=== PATIENT | male | born 1985 | race African-American/Black ===

== ENCOUNTER 2017-09-16 23:08 | Emergency (ER) | payer SELFPAY ==
[2017-09-16] MEDS: IV NORMAL SALINE 1000ML BAG 1,000 ML IV (23:55)
[2017-09-16 23:59] LABS: ADD MAN DIFF? NO
[2017-09-17] MEDS: ONDANSETRON PF 4 MG/2 ML VIAL. IV
[2017-09-17 00:01] LABS: BASO # 0.1 x10^3/uL (0.0-0.2); BASO % 0 % (0-3); EOS % 0 % (0-3); HEMATOCRIT 43.7 % (39.0-53.0); HEMOGLOBIN 14.6 g/dL (13.0-17.5); LYMPH # 1.6 x10^3/uL (1.0-4.8); LYMPH % 11 % (24-48); MEAN CORPUSCULAR HEMOGLOBIN 32 pg (25-35); MEAN CORPUSCULAR HGB CONC 34 g/dL (31-37); MEAN CORPUSCULAR VOLUME 97 fL (79-100); MONO # 0.8 x10^3/uL (0.0-1.1); MONO % 6 % (0-9); NEUT # 12.3 x10^3uL (1.8-7.7); NEUT % 83 % (31-73); PLATELET COUNT 285 x10^3/uL (140-400); RED BLOOD COUNT 4.52 x10^6/uL (4.30-5.70); RED CELL DISTRIBUTION WIDTH 12.8 % (11.5-14.5); WHITE BLOOD COUNT 14.7 x10^3/uL (4.0-11.0)
[2017-09-17] MEDS: MORPHINE SULFATE 2 MG/ML DISP.SYRIN. IV/SQ ×3 (00:02→01:18)
[2017-09-17] MEDS ORDERED: IV NORMAL SALINE 1000ML BAG 1,000 ML IV (01:00)
[2017-09-17 01:01] LABS: ANION GAP 12 (6-14); BLOOD UREA NITROGEN 10 mg/dL (8-26); BUN/CREATININE RATIO 10 (6-20); CALCIUM 9.1 mg/dL (8.5-10.1); CARBON DIOXIDE 26 mmol/L (21-32); CHLORIDE 104 mmol/L (98-107); GFR 103.5; GLUCOSE 110 mg/dL (70-99); POTASSIUM 3.5 mmol/L (3.5-5.1); SODIUM 142 mmol/L (136-145)
[2017-09-17 01:06] LABS: ALBUMIN 3.8 g/dL (3.4-5.0); ALBUMIN/GLOBULIN RATIO 0.9 (1.0-1.7); ALK PHOS 68 U/L (46-116); ALT (SGPT) 17 U/L (16-63); AST (SGOT) 20 U/L (15-37); TOTAL BILIRUBIN 0.3 mg/dL (0.2-1.0); TOTAL PROTEIN 8.1 g/dL (6.4-8.2)
[2017-09-17] MEDS ORDERED: CONTRAST GIVEN MC (01:30)
[2017-09-17] MEDS: fentaNYL PF VIAL 100 MCG/2 ML VIAL IV (01:48)
[2017-09-17] MEDS: IOHEXOL 300 MG/ML 100ML VIAL. IV (01:55)
[2017-09-17 02:39] LABS: BILIRUBIN,URINE NEGATIVE (NEG); CLARITY,URINE CLEAR; COLOR,URINE YELLOW; GLUCOSE,URINE NEGATIVE (NEG); NITRITE,URINE NEGATIVE (NEG); PROTEIN,URINE NEGATIVE (NEG-TRACE); UROBILINOGEN,URINE 0.2 mg/dL (0.2 mg/dL)
[2017-09-17 02:53] LABS: BACTERIA,URINE 0 /HPF (0-FEW); RBC,URINE 0 /HPF (0-2); SQUAMOUS EPITHELIAL CELL,UR OCC /LPF; WBC,URINE OCC /HPF (0-4)
[2017-09-17] MEDS: ORPHENADRINE CITRATE 60 MG/2 ML VIAL. IM (03:04)
== END 2017-09-17 03:11 | disposition home or self-care (01) ==
LOC: ER 09-17 03:11
DX: M54.16 Radiculopathy, lumbar region (principal); M54.42 Lumbago with sciatica, left side; E34.3 Short stature due to endocrine disorder; F17.210 Nicotine dependence, cigarettes, uncomplicated
CPT/HCPCS: 36415; 72131; 74177; 80053; 81001; 85025; 96361; 96372; 96374; 96375; 96376; 99285-25; J2270; J2360; J2405; J3010; J7030; Q9967

== ENCOUNTER 2020-06-30 08:41 | Emergency (ER) | payer SELFPAY ==
[~2020-06-30] VITALS: Ht 147.3 cm; Wt 54.0 kg
[~2020-06-30 08:41] MED LIST: NAPR-683 PO; ORPH100T PO
[2020-06-30 08:50] VITALS: BP 150/100
[2020-06-30] MEDS ORDERED: FAMO-63 PO (09:09)
[2020-06-30] MEDS ORDERED: DIPH25CA58 PO (09:09)
[2020-06-30] MEDS ORDERED: MUPI22OI2 TP (09:09)
[2020-06-30] MEDS ORDERED: PRED20TA PO (09:09)
--- NOTE | 2020-06-30 09:09 | PHYS DOC ---
Past Medical History Additional Past Medical Histor: DWARFISM Past Surgical History: No Surgical History Smoking Status: Current Every Day Smoker Alcohol Use: Occasionally Drug Use: None General Adult EDM: Chief Complaint: SKIN RASH/ABSCESS HPI: HPI: Patient is a 35 year old male presents with report of pruritic rash that started 1 week ago. Patient reports cannot stop itching. Reports started on his chest and has since spread everywhere including his groin. Patient reports noting a "abscess "that opened up above his groin a few days ago. Patient reports he has been using topical hydrocortisone cream as well as petroleum jelly without any improvement. Denies known exposure to allergen. Denies fever or chills. Denies diabetes. Denies known sick contacts. Denies anyone else in his household having similar rash or itching. Review of Systems: Review of Systems: Constitutional: Denies fever or chills Eyes: Denies redness or eye pain HENT: Denies nasal congestion or sore throat Respiratory: Denies cough or shortness of breath Cardiovascular: Denies chest pain or palpitations GI: Denies abdominal pain, nausea, or vomiting : Denies dysuria or hematuria Musculoskeletal: Denies back pain or joint pain Integument: Reports pruritic diffuse rash and pustular lesions to suprapubic area Neurologic: Denies headache, focal weakness or sensory changes Complete systems were reviewed and found to be within normal limits, except as documented in this note. Allergies: Allergies: Allergies Coded Allergies Type Severity Reaction Last Updated Verified No Known Allergies Allergy Unknown 09/16/17 Yes Physical Exam: PE: Constitutional: Well developed, well nourished, no acute distress, non-toxic appearance, dwarfism HENT: Normocephalic, atraumatic Eyes: Conjunctiva normal, no discharge Neck: Normal range of motion, no tenderness, supple Lungs & Thorax: No respiratory distress, equal chest rise and fall Skin: Warm, dry, follicular rash noted diffusely, small areas of pustules diffusely, no erythema, increased open pustules to suprapubic region, rash spares hands and no rash in webspaces between fingers Extremities: No tenderness, ROM intact Neurologic: Alert and oriented X 3, no focal deficits noted Psychologic: Affect normal, judgment normal Current Patient Data: Vital Signs: Vital Signs Date Time Temp Pulse Resp B/P (MAP) Pulse Ox O2 Delivery O2 Flow Rate FiO2 12/18/20 08:50 98.5 108 16 150/100 (117) 97 Room Air 98.5 EKG: EKG: [] Radiology/Procedures: Radiology/Procedures: [] Course & Med Decision Making: Course & Med Decision Making Patient presents with diffuse pruritic rash. Afebrile. Some areas of pustular lesions. Cannot exclude pustular eczema or secondary infection from self excoriations. Symptomatic treatment provided with oral steroid, Benadryl, and Pepcid. Prescription for empiric antibiotic ointment provided. Patient stable for discharge with outpatient follow-up with PCP/dermatology. Dermatology referral provided. Discussed findings and plan with patient and family, who acknowledge understanding and agreement. Gurpreet Disclaimer: Gurpreet Disclaimer: This electronic medical record was generated, in whole or in part, using a voice recognition dictation system. Departure Departure Impression: Primary Impression: Pruritic rash Additional Impression: Pustular dermatitis Disposition: 01 DC HOME SELF CARE/HOMELESS Condition: STABLE Referrals: NO PCP (PCP) DOMITILA PATEL MD Patient Instructions: Rash, [id number] Additional Instructions: Please follow with your family physician and/or ctrs if symptoms are not improving. Scripts Mupirocin (MUPIROCIN OINTMENT) 22 Gm Oint...g. 1 COREEN TP TID for WOUND CARE, #1 TUBE Prov: MURRAY AUSTIN DO 06/30/20 Diphenhydramine Hcl (BENADRYL) 25 Mg Capsule 1 CAP PO Q4-6HRS PRN for RASH, #30 CAP 0 Refills Prov: MURRAY AUSTIN DO 06/30/20 Famotidine (PEPCID) 20 Mg Tablet 20 MG PO BID for 7 Days, #14 TAB Prov: MURRAY AUSTIN DO 06/30/20 Prednisone (PREDNISONE) 20 Mg Tablet 2 TAB PO DAILY, #8 TAB Start this prescription tomorrow, Friday07/01/2020 Prov: MURRAY AUSTIN DO 06/30/20 MURRAY AUSTIN DO Jun 30, 2020 09:09
[2020-06-30] MEDS ORDERED: FAMOTIDINE 20 MG TABLET. PO ONE (09:15)
[2020-06-30] MEDS ORDERED: diphenhydrAMINE HCL 25 MG CAPSULE PO ONE (09:15)
[2020-06-30] MEDS ORDERED: DEXAMETHASONE 4 MG TABLET PO ONE (09:15)
== END 2020-06-30 09:41 | disposition home or self-care (01) ==
LOC: ER 08:41
DX: L13.1 Subcorneal pustular dermatitis (principal); R21 Rash and other nonspecific skin eruption; F17.200 Nicotine dependence, unspecified, uncomplicated; Z88.8 Allergy status to other drugs, medicaments and biological substances
CPT/HCPCS: 99284; Q0163